=== PATIENT | female | born 1965 | race Caucasian/White ===

== ENCOUNTER 2017-08-12 02:15 | Emergency (ER) | payer OTHER ==
[~2017-08-12] VITALS: Ht 162.6 cm; Wt 54.9 kg
[2017-08-12 02:49] VITALS: BP 112/75
== END 2017-08-12 02:51 | disposition home or self-care (01) ==
LOC: ED 02:46
DX: L03.116 Cellulitis of left lower limb (principal); E06.3 Autoimmune thyroiditis; M81.0 Age-related osteoporosis without current pathological fracture
CPT/HCPCS: 99283